=== PATIENT | male | born 1995 | race Caucasian/White ===

== ENCOUNTER 2020-12-12 13:09 | Emergency (ER) | payer OTHER ==
[2020-12-12] MEDS ORDERED: Sodium Chloride 0.9% 10 ML Syringe FLUSH PRN (13:49)
[2020-12-12] MEDS ORDERED: Meclizine 25 MG Tab PO ONE (13:49)
[2020-12-12] MEDS ORDERED: Ondansetron 4 MG/2 ML SDV IVPUSH ONE (13:49)
[2020-12-12] MEDS ORDERED: Sodium Chloride 0.9% 2.5 ML Syringe FLUSH PRN (13:49)
[2020-12-12] MEDS ORDERED: Sodium Chloride 0.9% 1,000 ML IV ONE (13:49)
[2020-12-12] MEDS ORDERED: Ketorolac 15 MG/ML SDV IVPUSH ONE (13:49)
--- NOTE | 2020-12-12 13:58 | EDM.PDOC ---
ED HPI GENERAL MEDICAL PROBLEM - General Chief Complaint: General Stated Complaint: VERTIGO Time Seen by Provider: 12/12/20 13:28 Source of Information: Reports: Patient - History of Present Illness INITIAL COMMENTS - FREE TEXT/NARRATIVE: 25-year-old male presenting with dizziness, lightheadedness and feeling of sensation of movement/vertigo. Symptoms have been ongoing for the last week. He also has nausea and vomiting as well as diarrhea. He is not sure if it is something he ate. He has not had any abdominal pain, fevers or body aches. No reported cough and no chest pain or difficulty breathing. He does report that he feels like he has to breathe fast to keep from vomiting. Report he has a history of an arachnoid cyst, he last had an MRI about a year ago. The cyst was diagnosed in 2018 and as far as he knows has not been increasing in size. Duration: Day(s): (7) Severity: Mild Improves with: Reports: None Worsens with: Reports: None Associated Symptoms: Reports: Nausea/Vomiting. Denies: Confusion, Chest Pain, Cough, Diaphoresis, Fever/Chills, Headaches, Shortness of Breath - Related Data Allergies Allergy/AdvReac Type Severity Reaction Status Date / Time No Known Allergies Allergy Verified 12/12/20 13:28 Home Meds: Home Meds Meclizine HCl 25 mg PO Q8H PRN #30 tablet 12/12/20 [Rx] Ondansetron [Zofran ODT] 4 mg PO Q6H PRN #20 tab.dis 12/12/20 [Rx] Past Medical History - Past Health History Medical/Surgical History: Denies Medical/Surgical History Other Neuro History: arachnoid cyst - Infectious Disease History Infectious Disease History: Reports: Chicken Pox Social & Family History - Tobacco Use Tobacco Use Status *Q: Never Tobacco User - Caffeine Use Caffeine Use: Reports: Soda - Recreational Drug Use Recreational Drug Use: No ED ROS GENERAL - Review of Systems Review Of Systems: See Below Constitutional: Reports: No Symptoms Respiratory: Reports: No Symptoms Cardiovascular: Reports: No Symptoms GI/Abdominal: Reports: Diarrhea, Nausea, Vomiting. Denies: Abdominal Pain Neurological: Reports: Dizziness. Denies: Confusion, Headache, Numbness, Trouble Speaking ED EXAM, GENERAL - Physical Exam Exam: See Below Exam Limited By: No Limitations General Appearance: Alert, WD/WN, No Apparent Distress Eye Exam: Bilateral Eye: EOMI (No nystagmus) Ears: Normal External Exam, Normal Canal, Hearing Grossly Normal, Normal TMs Head: Atraumatic, Normocephalic Neck: Supple Respiratory/Chest: No Respiratory Distress Cardiovascular: Regular Rate, Rhythm GI/Abdominal: Soft, Non-Tender Extremities: Normal Inspection, Normal Range of Motion Neurological: Alert, Oriented, Normal Cognition, Normal Gait, No Motor/Sensory Deficits Psychiatric: Normal Affect, Normal Mood Skin Exam: Warm, Dry #1 Interpretation EKG Date: 12/12/20 Time: 13:58 Rhythm: NSR Rate (Beats/Min): 94 [place]: Normal P-Wave: Present QRS: Normal ST-T: Other (Inversion in 2 3 and aVF) QT: Normal Course - Vital Signs Text/Narrative:: Dizziness/combined both vertigo and lightheadedness. Nausea and vomiting. Also diarrhea. Possible recent food poisoning. No abdominal tenderness or pain reported. No dyspnea. He does have a remote history of arachnoid cyst. Will check CT scan. The patient felt much better on reassessment after Zofran and meclizine as well as IV fluids and Toradol. Labs unremarkable. Covid test negative. CT pending. Last Recorded V/S: Last Vital Signs Temp 96.9 F 12/12/20 13:30 Pulse 71 12/12/20 15:30 Resp 16 12/12/20 15:30 BP 122/69 12/12/20 15:30 Pulse Ox 100 12/12/20 15:30 - Orders/Labs/Meds Orders: Active Orders 24 hr Category Date Time Status EKG 12 Lead [EKG Documentation Completion] [RC] STAT Care 12/12/20 13:55 Active Sodium Chloride 0.9% [Saline Flush] Med 12/12/20 13:49 Active 10 ml FLUSH ASDIRECTED PRN Sodium Chloride 0.9% [Saline Flush] Med 12/12/20 13:49 Active 2.5 ml FLUSH ASDIRECTED PRN Saline Lock Insert [OM.PC] Stat Oth 12/12/20 13:49 Ordered Medication Orders Sodium Chloride (Sodium Chloride 0.9% 10 Ml Syringe) 10 ml FLUSH ASDIRECTED PRN PRN Reason: Keep Vein Open Last Admin: 12/12/20 13:55 Dose: 10 ml Documented by: KATELYN Sodium Chloride (Sodium Chloride 0.9% 2.5 Ml Syringe) 2.5 ml FLUSH ASDIRECTED PRN PRN Reason: Keep Vein Open Last Admin: 12/12/20 13:55 Dose: 2.5 ml Documented by: KATELYN Labs: Laboratory Tests 12/12/20 12/12/20 12/12/20 Range/Units 13:48 13:48 13:48 WBC 10.75 (4.0-11.0) K/uL RBC 5.74 (4.50-5.90) M/uL Hgb 16.8 (13.0-17.0) g/dL Hct 47.5 (38.0-50.0) % MCV 82.8 (80.0-98.0) fL MCH 29.3 (27.0-32.0) pg MCHC 35.4 (31.0-37.0) g/dL RDW Std Deviation 38.1 (28.0-62.0) fl RDW Coeff of [place] 13 (11.0-15.0) % Plt Count 343 (150-400) K/uL MPV 9.50 (7.40-12.00) fL Neut % (Auto) 70.7 (48.0-80.0) % Lymph % (Auto) 21.3 (16.0-40.0) % [place] % (Auto) 7.0 (0.0-15.0) % Eos % (Auto) 0.7 (0.0-7.0) % Baso % (Auto) 0.3 (0.0-1.5) % Neut # (Auto) 7.6 H (1.4-5.7) K/uL Lymph # (Auto) 2.3 (0.6-2.4) K/uL [place] # (Auto) 0.8 (0.0-0.8) K/uL Eos # (Auto) 0.1 (0.0-0.7) K/uL Baso # (Auto) 0.0 (0.0-0.1) K/uL Nucleated RBC % 0.0 /100WBC Nucleated RBCs # 0 K/uL Sodium 138 (136-148) mmol/L Potassium 4.2 (3.5-5.1) mmol/L Chloride 102 (98-107) mmol/L Carbon Dioxide 26.0 (21.0-32.0) mmol/L BUN 11 (7.0-18.0) mg/dL Creatinine 1.3 (0.8-1.3) mg/dL Est Cr Clr Drug Dosing 103.10 mL/min Estimated GFR (MDRD) > 60.0 ml/min Glucose 104 (74-106) mg/dL Calcium 9.4 (8.5-10.1) mg/dL Total Bilirubin 0.9 (0.2-1.0) mg/dL AST 19 (15-37) IU/L ALT 25 (14-63) IU/L Alkaline Phosphatase 108 (46-116) U/L Troponin I < 0.050 (0.000-0.056) ng/mL Total Protein 8.6 H (6.4-8.2) g/dL Albumin 4.4 (3.4-5.0) g/dL Globulin 4.2 H (2.6-4.0) g/dL Albumin/Globulin Ratio 1.1 (0.9-1.6) Lipase 65 L (73-393) U/L SARS-CoV-2 RNA (CATHY) (NEGATIVE) 12/12/20 Range/Units 14:05 WBC (4.0-11.0) K/uL RBC (4.50-5.90) M/uL Hgb (13.0-17.0) g/dL Hct (38.0-50.0) % MCV (80.0-98.0) fL MCH (27.0-32.0) pg MCHC (31.0-37.0) g/dL RDW Std Deviation (28.0-62.0) fl RDW Coeff of [place] (11.0-15.0) % Plt Count (150-400) K/uL MPV (7.40-12.00) fL Neut % (Auto) (48.0-80.0) % Lymph % (Auto) (16.0-40.0) % [place] % (Auto) (0.0-15.0) % Eos % (Auto) (0.0-7.0) % Baso % (Auto) (0.0-1.5) % Neut # (Auto) (1.4-5.7) K/uL Lymph # (Auto) (0.6-2.4) K/uL [place] # (Auto) (0.0-0.8) K/uL Eos # (Auto) (0.0-0.7) K/uL Baso # (Auto) (0.0-0.1) K/uL Nucleated RBC % /100WBC Nucleated RBCs # K/uL Sodium (136-148) mmol/L Potassium (3.5-5.1) mmol/L Chloride (98-107) mmol/L Carbon Dioxide (21.0-32.0) mmol/L BUN (7.0-18.0) mg/dL Creatinine (0.8-1.3) mg/dL Est Cr Clr Drug Dosing mL/min Estimated GFR (MDRD) ml/min Glucose (74-106) mg/dL Calcium (8.5-10.1) mg/dL Total Bilirubin (0.2-1.0) mg/dL AST (15-37) IU/L ALT (14-63) IU/L Alkaline Phosphatase (46-116) U/L Troponin I (0.000-0.056) ng/mL Total Protein (6.4-8.2) g/dL Albumin (3.4-5.0) g/dL Globulin (2.6-4.0) g/dL Albumin/Globulin Ratio (0.9-1.6) Lipase (73-393) U/L SARS-CoV-2 RNA (CATHY) NEGATIVE (NEGATIVE) Meds: Medications Generic Name Dose Route Start Last Admin Trade Name Freq PRN Reason Stop Dose Admin Sodium Chloride 10 ml 12/12/20 13:49 12/12/20 13:55 Sodium Chloride 0.9% 10 Ml Syringe FLUSH 10 ml ASDIRECTED PRN Administration Keep Vein Open Sodium Chloride 2.5 ml 12/12/20 13:49 12/12/20 13:55 Sodium Chloride 0.9% 2.5 Ml Syringe FLUSH 2.5 ml ASDIRECTED PRN Administration Keep Vein Open Discontinued Medications Generic Name Dose Route Start Last Admin Trade Name Freq PRN Reason Stop Dose Admin Sodium Chloride 1,000 mls @ 999 mls/hr 12/12/20 13:49 12/12/20 13:54 Normal Saline IV 12/12/20 14:49 999 mls/hr .Bolus ONE Administration Ketorolac Tromethamine 15 mg 12/12/20 13:49 12/12/20 13:55 Ketorolac 15 Mg/Ml Sdv IVPUSH 12/12/20 13:50 15 mg ONETIME ONE Administration Meclizine HCl 50 mg 12/12/20 13:49 12/12/20 13:56 Meclizine 25 Mg Tab PO 12/12/20 13:50 50 mg ONETIME ONE Administration Ondansetron HCl 4 mg 12/12/20 13:49 12/12/20 13:55 Ondansetron 4 Mg/2 Ml Sdv IVPUSH 12/12/20 13:50 4 mg ONETIME ONE Administration - Re-Assessments/Exams Free Text/Narrative Re-Assessment/Exam: 12/12/20 16:05 Patient feeling well and in no acute distress. He reports his vertigo/dizziness symptoms is much improved after the Zofran and meclizine tablets. Discussed recommendation for CT scan. The patient agrees. 12/12/20 17:12 CT scan with no acute change. Cyst appears stable compared to MRI in 2019. Symptoms are improved. Discussed all the above with patient. Will discharge with Zofran and meclizine as needed, as well as plan for outpatient follow-up. Departure - Departure Time of Disposition: 17:13 Disposition: Home, Self-Care 01 Clinical Impression: Vertigo, Dizziness - Discharge Information Instructions: Vertigo, [id number], Dizziness, [id number] Referrals: Aris Olsen ASSISTANT EDUCATION DIRECTOR [Primary Care Provider] - 1 Day Forms: ED Department Discharge Additional Instructions: Please follow-up with your primary care physician or the [place] clinic. You may take the meclizine as needed for any vertigo type dizziness symptoms, and if you have frequent or recurrent vomiting, you may take the Zofran. If you develop any weakness or numbness on any side or difficulty speaking, please go to the nearest emergency department. Also if he had any difficulty walking or instability, please return to the nearest emergency department. Please drink plenty of fluids for the next few days. Slowly progress your diet. The following information is given to patients seen in the emergency department who are being discharged to home. This information is to outline your options for follow-up care. We provide all patients seen in our emergency department with a follow-up referral. The need for follow-up, as well as the timing and circumstances, are variable depending upon the specifics of your emergency department visit. If you don't have a primary care physician on staff, we will provide you with a referral. We always advise you to contact your personal physician following an emergency department visit to inform them of the circumstance of the visit and for follow-up with them and/or the need for any referrals to a consulting specialist. The emergency department will also refer you to a specialist when appropriate. This referral assures that you have the opportunity for follow-up care with a specialist. All of these measure are taken in an effort to provide you with optimal care, which includes your follow-up. Under all circumstances we always encourage you to contact your private physician who remains a resource for coordinating your care. When calling for follow-up care, please make the office aware that this follow-up is from your recent emergency room visit. If for any reason you are refused follow-up, please contact the [facility] Emergency Department at and asked to speak to the emergency department charge nurse. Sepsis Event Note (ED) - Evaluation Sepsis Screening Result: No Definite Risk - Focused Exam Vital Signs: Vital Signs Temp Pulse Resp BP Pulse Ox 12/12/20 15:30 71 16 122/69 100 12/12/20 14:00 85 17 118/71 100 12/12/20 13:30 96.9 F 88 18 140/90 98 - My Orders Last 24 Hours: My Active Orders 12/12/20 13:49 Sodium Chloride 0.9% [Saline Flush] 10 ml FLUSH ASDIRECTED PRN Sodium Chloride 0.9% [Saline Flush] 2.5 ml FLUSH ASDIRECTED PRN Saline Lock Insert [OM.PC] Stat 12/12/20 13:55 EKG 12 Lead [EKG Documentation Completion] [RC] STAT - Assessment/Plan Last 24 Hours: My Active Orders 12/12/20 13:49 Sodium Chloride 0.9% [Saline Flush] 10 ml FLUSH ASDIRECTED PRN Sodium Chloride 0.9% [Saline Flush] 2.5 ml FLUSH ASDIRECTED PRN Saline Lock Insert [OM.PC] Stat 12/12/20 13:55 EKG 12 Lead [EKG Documentation Completion] [RC] STAT
[2020-12-12 14:16] LABS: BLOOD UREA NITROGEN,BUN 11 mg/dL (7.0-18.0); CHLORIDE,CL 102 mmol/L (98-107); GLUCOSE RANDOM 104 mg/dL (74-106); LIPASE 65 U/L (73-393); POTASSIUM,K 4.2 mmol/L (3.5-5.1); SODIUM,NA 138 mmol/L (136-148)
--- NOTE | 2020-12-12 16:59 | CT ---
INDICATION: Dizziness and vertigo. History of arachnoid cyst. TECHNIQUE: CT head without contrast. COMPARISON: MRI brain 02/18/2020 FINDINGS: CSF spaces: Within normal limits for age. Brain parenchyma: The cleaning-white differentiation is normal. No intracranial bleed. 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 Skull base and calvarium: The visualized paranasal sinuses and mastoid air cells demonstrate no acute or significant findings. The visualized orbits are grossly unremarkable. No skull fractures. 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 No intracranial bleed or interval change compared to the prior exam. Please note that all CT scans at this facility use dose modulation, iterative reconstruction, and/or weight-based dosing when appropriate to reduce radiation dose to as low as reasonably achievable. Dictated by Johnnie Clark MD @ 12/12/2020 4:56:[address] Johnnie Clark @ Dec 12 2020 4:56PM
== END 2020-12-12 17:27 | disposition home or self-care (01) ==
LOC: MW.ED 13:09
DX: R42 Dizziness and giddiness (principal); Z20.822 Contact with and (suspected) exposure to COVID-19
CPT/HCPCS: 36415; 70450; 80053; 83690; 84484; 85025; 87635; 93005; 96374; 96375; 99284; A9270; J1885; J2405; J7030; U0002